=== PATIENT | female | born 1980 | race Caucasian/White ===

== ENCOUNTER → 2020-12-04 09:21 | Outpatient (CLI) | payer OTHER, SELFPAY ==
[2020-12-04 10:21] LABS: COVID19 -Nasal RAPID Negative (Negative)
== END ==
PROVIDERS: Visit Provider Surgery
DX: Z01.812 Encounter for preprocedural laboratory examination (principal); Z20.822 Contact with and (suspected) exposure to COVID-19
CPT/HCPCS: 87635; C9803

== ENCOUNTER 2020-12-05 12:28 | Day surgery (SDC) | payer OTHER, SELFPAY ==
[2020-12-05] VITALS (8 sets, daily range): BP systolic 118–141; BP diastolic 69–98; PULSE 97–128; RESP 13–22; TEMP 36.5–37.1; O2SAT 96–100; BMI 31.7
--- NOTE | 2020-12-05 07:58 | PM.PREOP ---
Pre-operative Note COVID-19 COVID-19 status: Negative Result date/Date tested (Pos, Neg/Pending): 12/04/20 Interval Note History & Physical reviewed/Exam performed by Physician: Yes Changes to H&P: No
[2020-12-05] MEDS: LACTATED RINGERS 1,000 ML 100 ML IV (13:16)
[2020-12-05] MEDS: CEFAZOLIN 2 GM/100 ML FROZ.PIGGY IV (14:05)
[2020-12-05] MEDS: metroNIDAZOLE 500 MG/100 ML PIGGYBACK 100 MG IV (14:15)
--- NOTE | 2020-12-05 14:28 | SUR.OPER ---
Prone on padded OR bed, head in foam head support, gel chest rolls, gel pad under knees, pillow under lower legs, toes free of pressure, arms secured on padded arm boards at <90 degrees abduction. Safety belt at thigh.
[2020-12-05] MEDS: BUPIVACAINE LIPOSOME 266 MG/20 ML VIAL INJ (14:36)
[2020-12-05] MEDS: BUPIVACAINE 0.5% W/ EPI (PF) 30 ML VIAL INJ (14:36)
[2020-12-05] MEDS: DIBUCAINE 1% OINT 28 GM 1 APPLIC TOP (14:37)
[2020-12-05] MEDS: ONDANSETRON 4 MG/2 ML INJ IV (15:01)
[2020-12-05] MEDS: METOCLOPRAMIDE 10 MG/2 ML INJ IV (15:05)
--- NOTE | 2020-12-05 15:45 | PM.OP.1 ---
Operative Date/Time/Diagnoses Date of procedure: 12/05/20 Time of procedure: 15:45 Pre-op diagnosis: Anal pain, suspected anal fissure, internal hemorrhoids Post-op diagnosis: other (scar tissue from prior hemorrhoidectomy, right posterior interal hemorrhoid) Procedure & Clinicians Procedure: Anorectal exam under anesthesia Left internal lateral sphincterotomy Banding of one internal hemorrhoid column, right posterior Same procedure as scheduled: Yes Indications: Anal pain, history of hemorrhoidectomy, intermittent anal bleeding Surgeon: Stefanie Matias Click Yes if Unassisted: Yes Anesthesia Type: General Operative Notes Findings: Scar tissue tethering the anoderm at the anterior right hemorrhoidal column, likely cause of anal pain. Single moderate size internal hemorrhoid column at the right posterior position, banded. Small to moderate external hemorrhoids, largest at the right posterior position. Specimen(s): none sent Estimated Blood Loss (mL): 1 Procedure in detail: The patient was brought into the OR. Sequential compression devices were placed on both legs and turned on. Appropriate perioperative antibiotics were given. General anesthesia was induced and the patient was intubated. The patient was turned prone onto the OR table. All bony prominences were padded. The buttocks were taped apart. The perianal area was prepped and draped in sterile fashion with betadine prep. Surgical timeout was conducted. 0.5% Marcaine with epi was used to perform a four quadrant anal block using 3mL per quadrant for a total of 15mL. On external exam there were small to moderate external hemorrhoids seen circumferentially, most prominent at the posterior right column. Chronic scar tissue was seen at the anterior right column prior hemorrhoidectomy site tethering the anoderm at that site. With copious lubricant, an anorectal exam was performed. A single internal hemorrhoid was seen at the right posterior column. It was the only hemorrhoid large enough to band. The right anterior column was scarred down, and the left lateral column was minimally enlarged. The internal hemorrhoid in the right posterior position was grasped and 3 bands were placed on its neck, superior to the dentate line. Attention was then turned to the left lateral anoderm at 9:00 position. A small skin incision was made overlying the anal sphincter muscle. The skin was opened and dissection was carried down to the anal sphincter using a mosquito clamp. The internal sphincter was located and 4mm of muscle was divided. The anoderm was closed with 4-0 chromic suture. 20mL of Exparel was used to inject the anoderm and anal canal circumferentially 2-3mL per cm. A large Gelfoam was then coated and rolled with Dibucaine and placed in the anal canal. A thick layer of Dibucaine was used to coat the anoderm. After placement of the rolled gelfoam, the bands were no longer palpable. I took another look with anoscope and found that the bands were dislodged by the passage of the Gelfoam. Two bands were placed again on the right posterior column, which remained in place. There was some mild bleeding from the external hemorrhoid tissue at the anal verge. Good hemostasis was achieved using cautery on two small bleeders. A stack of 4x4 gauze was then used to cover the anal opening and secured in place with medipore tape. The patient was transferred onto her hospital bed into supine position. She was then awakened from anesthesia and extubated. Needle, sponge, and instrument counts were correct x 2. The patient was transferred to the PACU in stable condition. Complications: none Post-operative Condition: stable Disposition: PACU
== END 2020-12-05 15:35 | disposition home or self-care (01) ==
PROVIDERS: PCP Family Medicine; Referring Provider Surgery; Visit Provider Surgery
PROC: (CPT 46080; principal; 2020-12-05 14:00)
DX: K62.89 Other specified diseases of anus and rectum (principal); K64.8 Other hemorrhoids; K64.4 Residual hemorrhoidal skin tags; E66.9 Obesity, unspecified; Z68.32 Body mass index [BMI] 32.0-32.9, adult
CPT/HCPCS: 46080; C9290; J0330; J0690; J1100; J2405; J2704; J2765; J3010

== ENCOUNTER → 2021-04-05 08:01 | Outpatient (CLI) | payer OTHER, SELFPAY ==
--- NOTE | 2021-04-05 | DI.MRI.S_ITS ---
PROCEDURE: MR LUMBAR SPINE WO CON INDICATIONS: Radiculopathy, lumbar region TECHNIQUE: Noncontrast sagittal T1 spin echo and T2 fast echo, sagittal STIR, axial T1 and T2 fast spin echo through the lumbar spine. In cases with scoliosis, additional coronal T2 fast spin echo may be performed. COMPARISON: Outside Facility, RG, CT ABDOMEN/PELVIS WITH CONTRAST, 09/10/2020, 9:21. FINDINGS: Image quality: Excellent. Alignment and Curvature: 5 lumbar type vertebral bodies are present by plain film. There is minimal grade 1 retrolisthesis of L3 on L4, L4 on L5, and L5 on S1. Bone Marrow: Marrow is of normal overall signal. No acute vertebral body compression fractures. Minimal reactive signal within the endplates adjacent to the L3-L4, L4-L5, and L5-S1 intervertebral discs. Spinal Cord: Conus medullaris terminates at the lower L2 level. Visualized cord demonstrates normal signal and size. Paraspinous Soft Tissues: No paravertebral masses. T12-L1: Normal appearance. L1-L2: Normal appearance. L2-L3: Normal appearance. L3-L4: Mild diffuse disc bulge. Mild facet and ligamentum flavum hypertrophy. Mild epidural lipomatosis. Minimal canal stenosis. Mild bilateral foraminal stenosis. L4-L5: Mild disc desiccation and diffuse disc bulge. Mild facet and ligamentum flavum hypertrophy. Mild epidural lipomatosis. Mild canal stenosis. Mild to moderate bilateral foraminal stenosis. L5-S1: Moderate disc height loss and desiccation. Mild diffuse disc bulge. Mild facet and ligamentum flavum hypertrophy. Mild canal stenosis. Mild to moderate foraminal stenosis bilaterally. IMPRESSION: 1. Multilevel degenerative disc and facet disease, as well as ligamentum flavum hypertrophy and epidural lipomatosis. 2. Mild multilevel canal stenosis. 3. Multilevel foraminal stenoses, worst at L4-L5 and L5-S1 bilaterally where there are mild to moderate bilateral foraminal stenosis. Dictated by: Lian Rose M.D. on 04/05/2021 at 9:19 Approved by: Lian Rose M.D. on 04/05/2021 at 9:22
== END ==
PROVIDERS: PCP Family Medicine; Referring Provider Family Medicine; Visit Provider Family Medicine
DX: M54.16 Radiculopathy, lumbar region (principal); M51.36 Other intervertebral disc degeneration, lumbar region; M48.061 Spinal stenosis, lumbar region without neurogenic claudication; E88.2 Lipomatosis, not elsewhere classified
CPT/HCPCS: 72148

== ENCOUNTER → 2022-06-28 07:38 | Outpatient (CLI) | payer OTHER, SELFPAY ==
--- NOTE | 2022-06-28 07:40 | DI.MRI.S_ITS ---
PROCEDURE: MR CERVICAL SPINE WO CON INDICATIONS: Abnormal reflex TECHNIQUE: Noncontrast sagittal T1 spin echo and T2 fast spin echo, sagittal STIR, foraminal oblique sagittal T2 fast spin echo, and axial gradient echo or T2 fast spin echo through the cervical spine. COMPARISON: None. FINDINGS: Image quality: Excellent. Alignment and Curvature: There is loss of normal cervical lordosis. Bone Marrow: Marrow demonstrates normal overall signal. There is mild reactive signal within the endplates adjacent to the C6-C7 intervertebral disc. Spinal Cord: Visualized spinal cord has normal size and signal. No cerebellar tonsillar herniation. Paraspinous Soft Tissues: No paravertebral masses. Prevertebral soft tissues are normal in thickness. C2-C3: Congenital canal stenosis. There is overall mild canal stenosis. No foraminal stenosis. C3-C4: Congenital canal stenosis. Mild disc desiccation. Mild facet and uncovertebral hypertrophy bilaterally. Overall mild canal stenosis. No significant foraminal stenosis. C4-C5: Congenital canal stenosis. Mild disc desiccation with small central protrusion. Mild facet and uncovertebral hypertrophy. Mild canal stenosis. Mild bilateral foraminal stenosis. C5-C6: Congenital canal stenosis. Mild disc desiccation and diffuse disc bulge. Mild facet and uncovertebral hypertrophy bilaterally. Mild to moderate canal stenosis. Mild bilateral foraminal stenosis. C6-C7: Congenital canal stenosis. Mild disc height loss and desiccation. Mild diffuse disc bulge with superimposed broad-based central protrusion. Mild facet and uncovertebral hypertrophy bilaterally. Severe canal stenosis. Mild cord flattening. Mild bilateral foraminal stenosis. C7-T1: Congenital canal stenosis. Mild disc desiccation. Mild facet and uncovertebral hypertrophy. Mild canal stenosis. Mild bilateral foraminal stenosis. IMPRESSION: 1. Diffuse congenital canal stenosis with superimposed disc and facet disease. 2. Multilevel canal stenoses, worst at C6-C7 where there is mild cord flattening. 3. Mild multilevel foraminal stenoses. Dictated by: Lian Rose M.D. on 07/01/2022 at 9:28 Approved by: Lian Rose M.D. on 07/01/2022 at 9:33
== END ==
PROVIDERS: PCP Family Medicine; Referring Provider Psychiatry & Neurology Neurology; Visit Provider Psychiatry & Neurology Neurology
DX: M48.02 Spinal stenosis, cervical region (principal); R29.2 Abnormal reflex
CPT/HCPCS: 72141

== ENCOUNTER → 2023-02-16 13:30 | Outpatient (CLI) | payer OTHER, SELFPAY ==
--- NOTE | 2023-02-16 | DI.RAD.S_ITS ---
PROCEDURE: FL SHOULDER INJECTION MR/CT LT INDICATIONS: Unspecified dislocation of left shoulder joint COMPARISON: None. TECHNIQUE: The indications, alternatives, benefits, risks, and complications of the procedure were explained to the patient. Written informed consent was obtained and placed in the chart. The shoulder was examined fluoroscopically and a site for needle placement chosen for entry into the glenohumeral joint from an anterior approach. The skin was prepped and draped in a sterile fashion, and 1% lidocaine infiltrated from skin down to joint capsule. A spinal needle was inserted into the glenohumeral joint, and a small amount of iodinated contrast media injected to confirm intra-articular placement of the needle tip. This was followed by approximately 12 mL dilute solution of a gadolinium containing MR contrast agent. The needle was removed and a dressing was applied. The patient was given postprocedural instructions and sent to the MR suite for MR imaging. FINDINGS: A single fluoroscopic spot image demonstrates intra-articular location of injected iodinated contrast. IMPRESSION: Successful fluoroscopically guided administration of dilute Gadolinium solution into the shoulder joint for MR arthrogram. Dictated by: Silvia Walker M.D. on 02/17/2023 at 10:55 Approved by: Silvia Walker M.D. on 02/17/2023 at 10:55
--- NOTE | 2023-02-16 | DI.MRI.S_ITS ---
PROCEDURE: MR SHOULDER LT W CON INDICATIONS: Unspecified dislocation of left shoulder joint TECHNIQUE: After the administration of 12 mL of dilute intra-articular Gadolinium contrast, oblique coronal T1 and T2 spin echo with fat saturation, oblique sagittal T1 spin echo with and without fat saturation, oblique sagittal T2 fast spin echo with fat saturation, axial T1 spin echo with fat saturation through the shoulder. COMPARISON: None. FINDINGS: Image quality: Excellent. Rotator cuff: The supraspinatus, infraspinatus, and subscapularis tendons appear intact throughout. Iatrogenic contrast within the subscapularis is present. No rotator cuff muscle atrophy on sagittal images. Bones and bursae: There is mild indentation of the posterolateral aspect of the humeral head superiorly, with moderate underlying ill-defined STIR signal elevation. No acromioclavicular joint degeneration. The acromion demonstrates conventional anatomy, without an os acromiale. Capsule and soft tissues: The labrum and glenohumeral ligaments appear intact. The long head of the biceps tendon demonstrates normal location and morphology. The rotator interval appears normal, without fibrosis. The coracohumeral ligament is of normal thickness. No intra-articular bodies. IMPRESSION: 1. Hill-Sachs fracture of the humeral head. 2. No evidence of glenoid labral tear. 3. No rotator cuff tear. Dictated by: Lian Rose M.D. on 02/16/2023 at 15:19 Transcribed by: GUILLE on 02/16/2023 at 15:21 Approved by: Lian Rose M.D. on 02/16/2023 at 16:54
== END ==
PROVIDERS: PCP Family Medicine; Referring Provider Family Medicine; Visit Provider Family Medicine
DX: S42.292A Other displaced fracture of upper end of left humerus, initial encounter for closed fracture (principal); X58.XXXA Exposure to other specified factors, initial encounter
CPT/HCPCS: 23350; 73222

== ENCOUNTER → 2023-04-27 08:47 | Outpatient (CLI) | payer OTHER, SELFPAY ==
--- NOTE | 2023-04-27 | DI.US.S_ITS ---
PROCEDURE: US INJECT OR DRAIN JOINT INDICATIONS: LEFT SHOULDER PAIN - PROXIMAL BICEPS TENDON INJECTION TECHNIQUE: The indications, alternatives, benefits, risks, and complications of the procedure were explained to the patient. Written informed consent was obtained and placed in the chart. The patient was placed in the supine position on the table, and a site was chosen for percutaneous access under ultrasound guidance. Local anesthetic was administered using a 1% lidocaine solution. A hypodermic or spinal needle was then used to access the biceps tendon. A mixture of medicine with injected into the biceps tendon should under ultrasound guidance. The needle was then withdrawn, and a bandage applied to the puncture site. FINDINGS: Joint injected: Proximal left biceps tendon. Medications injected: 0.5 mL of 40 mg/mL Kenalog and 1.0 mL 0.5% Ropivacaine mixture. Patient's pain before injection: 2 of 10. Patient's pain after injection: 2 of 10. Complications: None. IMPRESSION: Successful ultrasound guided administration of steroid and anaesthetic solution into the left biceps tendon. Dictated by: Silvia Walker M.D. on 04/27/2023 at 11:23 Approved by: Silvia Walker M.D. on 04/27/2023 at 11:26
== END ==
PROVIDERS: PCP Family Medicine; Referring Provider Orthopaedic Surgery; Visit Provider Orthopaedic Surgery
DX: M25.512 Pain in left shoulder (principal)
CPT/HCPCS: 20611

== ENCOUNTER → 2025-07-17 13:47 | Outpatient (CLI) | payer OTHER, SELFPAY ==
--- NOTE | 2025-07-17 13:49 | DI.US.S_ITS ---
PROCEDURE: US VENOUS INSUFFICIENCY LTD INDICATIONS: EVAL VENOUS FLOW TECHNIQUE: Real time scanning was performed of the lower extremity venous system, with imaging documentation, as well as Color and pulse Doppler interrogation. COMPARISON: None. FINDINGS: RIGHT LOWER EXTREMITY: The deep veins are normally compressible, and free of intraluminal thrombus. Color and pulse Doppler demonstrate normal intravascular flow. There is normal augmentation with distal compression maneuver. Greater saphenous vein (GSV): Normally 4 mm or less in diameter, with any reflux less than 0.5 seconds. Saphenofemoral junction (SFJ): 6 mm. No reflux. Proximal GSV: 4 mm. No reflux. Mid GSV: 4 mm. No reflux. Distal GSV: 4 mm. No reflux. Calf GSV: 3 mm, and no reflux. Anterior accessory GSV (AAGSV): Anatomic variant not present across anterior thigh. Small saphenous vein (SSV): Nonvisualized IMPRESSION: Mild dilation of the saphenofemoral junction without reflux. No venous reflux in the right lower extremity. Dictated by: Jean Pierre Weir M.D. on 07/17/2025 at 15:54 Approved by: Jean Pierre Weir M.D. on 07/17/2025 at 15:55
== END ==
PROVIDERS: PCP Family Medicine; Referring Provider Family Medicine; Visit Provider Family Medicine
DX: I83.811 Varicose veins of right lower extremity with pain (principal)
CPT/HCPCS: 93971